=== PATIENT | male | born 1955 | race African-American/Black ===

== ENCOUNTER 2017-01-15 07:40 | Inpatient (IN) | payer OTHER ==
[~2017-01-15] VITALS: Ht 147.3 cm; Wt 81.5 kg
[~2017-01-15 07:40] MED LIST: ASPI-556 PO; DOCU100T8 PO; EXEN10PE SQ; FENO160T16 PO; LISI-622 PO; METF10002 PO; OMEG1CAP31 PO; OMEP20TA86 PO; SIMV40TA5 PO
[2017-01-15] MEDS ORDERED: 0.9% SODIUM CHLORIDE 10 ML SYRINGE IVP PRN ×2 (08:00→22:30)
[2017-01-15 08:02] LABS: GLUCOSE,POINT OF CARE 91 MG/DL (70-110)
[2017-01-15] MEDS ORDERED: ATOR40TA28 PO (08:08)
[2017-01-15] MEDS ORDERED: GABA-531 PO (08:08)
[2017-01-15] MEDS ORDERED: HYDR-4065 PO (08:08)
[2017-01-15] MEDS ORDERED: OMEP20 PO (08:08)
[2017-01-15 08:11] LABS: BASOPHILS % (AUTO) 0.1 % (0.0-2.0); EOSINOPHILS % (AUTO) 0.1 % (1.0-6.0); HEMATOCRIT 45.5 % (41-53); HEMOGLOBIN 14.3 g/dL (13.5-17.5); LYMPHOCYTES % (AUTO) 13.2 % (22.0-44.0); MEAN CORPUSCULAR HEMOGLOBIN 27.2 pg (26.0-34.0); MEAN CORPUSCULAR HGB CONC 31.4 G/dL (31.0-37.0); MEAN CORPUSCULAR VOLUME 87 fL (80-100); MONOCYTES # (AUTO) 0.3 K/uL (0.1-1.0); MONOCYTES % (AUTO) 4.1 % (2.0-9.0); NEUTROPHILS # (AUTO) 6.4 K/uL (1.8-7.7); NEUTROPHILS % (AUTO) 82.5 % (40.0-70.0); PLATELET COUNT (AUTO) 349 K/uL (150-450); RED BLOOD CELL COUNT(AUTO) 5.26 MIL/uL (4.50-5.90); RED CELL DISTRIBUTION WIDTH 16.9 % (11.5-14.5); WHITE BLOOD COUNT (AUTO) 7.7 K/uL (4.5-11.0)
[2017-01-15 08:20] LABS: ANION GAP 18 mmol/L (8-16); CALCIUM, TOTAL 8.9 mg/dL (8.8-10.5); CARBON DIOXIDE 19 mmol/L (22-29); CHLORIDE 104 mmol/L (98-107); CREATININE 1.38 mg/dL (0.60-1.30); GLOMERULAR FILTR. RATE CALC > 60 mL/min (>60); POTASSIUM 3.7 mmol/L (3.5-5.1); SODIUM SERUM 141 mmol/L (136-145); UREA NITROGEN, BLOOD 14 mg/dL (7-18)
[2017-01-15 08:21] LABS: PROTHROMBIN TIME 10.3 SEC (9.4-11.6)
[2017-01-15 08:26] LABS: ALANINE AMINOTRANSFERASE 32 U/L (12-78); ALBUMIN 3.5 g/dL (3.4-5.0); ASPARTATE AMINOTRANSFERASE 29 U/L (15-37); BILIRUBIN,TOTAL 0.4 mg/dL (0.1-1.0); TOTAL PROTEIN, SERUM 7.2 g/dL (6.4-8.2)
[2017-01-15 08:46] LABS: LACTIC ACID 3.4 mmol/L (0.4-2.0)
[2017-01-15 10:05] LABS: REFLEX LACTIC ACID? YES YES
[2017-01-15] MEDS ORDERED: CefTRIAXone 1 GM/DEXTROSE 50 ML IV ONE (11:15)
[2017-01-15] MEDS ORDERED: SODIUM CHLORIDE 0.9% 500 ML IV ONE (11:15)
[2017-01-15] MEDS ORDERED: *CLINICAL-LEVOFLOXACIN ORAL DOSING CLINICAL ONE (12:15)
[2017-01-15] MEDS ORDERED: BISACODYL 10 MG RECTAL RECTAL SUPPOSITORY PR PRN (12:15)
[2017-01-15] MEDS ORDERED: MORPHINE SULFATE 2 MG/ML SYRINGE IVP PRN (12:15)
[2017-01-15] MEDS ORDERED: ONDANSETRON HCL 4 MG/2 ML VIAL IVP PRN (12:15)
[2017-01-15] MEDS ORDERED: MAGNESIUM HYDROXIDE SUSPENSION 30 ML UDCUP PO PRN (12:15)
[2017-01-15] MEDS ORDERED: ACETAMINOPHEN 325 MG TABLET PO PRN (12:15)
[2017-01-15 12:47] LABS: APPEARANCE,URINE CLOUDY (CLEAR); GLUCOSE, URINE (UA) NEGATIVE (NEGATIVE); KETONES,URINE TRACE mg/dL (NEGATIVE); LEUKOCYTE ESTERASE ,URINE NEGATIVE (NEGATIVE); OCCULT BLOOD,URINE SMALL (NEGATIVE); PH,URINE 5.5 (5.0-8.0); PROTEIN,URINE SEE CONFIRM (NEGATIVE)
[2017-01-15 12:48] LABS: ADD UA MICROSCOPIC YES
[2017-01-15 12:50] LABS: SULFOSALICYLIC ACID,URINE 1+ (Negative)
[2017-01-15 12:53] LABS: HYALINE CASTS, URINE 0-2 /LPF (None Seen); RENAL EPITHELIAL CELLS,URINE Few /LPF (None Seen); SQUAMOUS EPITHELIAL CELL,UR Few /LPF (None Seen); WBC,URINE 0-2 /HPF (0-5)
[2017-01-15 13:02] LABS: GLUCOSE,POINT OF CARE 73 MG/DL (70-110)
[2017-01-15] MEDS: LEVOFLOXACIN 750 MG/D5% WATER 150 ML IV SCH (13:27)
[2017-01-15 15:47] VITALS: BP 136/77
[2017-01-15] MEDS: HEPARIN SODIUM,PORCINE 5,000 UNITS/ML VIAL SQ SCH (16:05)
[2017-01-15] MEDS ORDERED: PNEUMOCOCCAL VACCINE POLYVALENT 0.5 ML VIAL [PPSV23] IM ONE (16:30)
[2017-01-15 19:45] VITALS: BP 134/83
[2017-01-15] MEDS: ATORVASTATIN CALCIUM 40 MG TABLET PO SCH (20:43)
[2017-01-15] MEDS: ZOLPIDEM TARTRATE 5 MG TABLET PO PRN (20:43)
[2017-01-15] MEDS: DOCUSATE SODIUM 100 MG CAPSULE PO SCH (20:43)
[2017-01-15] MEDS ORDERED: [UNRECOGNIZED DRUG - OTHER] SQ SCH (21:00)
[2017-01-15] MEDS: HYDROCODONE/ACETAMINOPHEN 5-325 MG TABLET PO PRN (22:14)
[2017-01-15 23:43] VITALS: BP 130/81
[2017-01-16] MEDS: HEPARIN SODIUM,PORCINE 5,000 UNITS/ML VIAL SQ SCH ×3 (00:58→17:08)
[2017-01-16 04:45] VITALS: BP 148/89
[2017-01-16] MEDS: ASPIRIN 81 MG EC TABLET PO SCH (08:06)
[2017-01-16] MEDS: DOCUSATE SODIUM 100 MG CAPSULE PO SCH ×2 (08:06→21:38)
[2017-01-16] MEDS: FENOFIBRATE 160 MG TABLET PO SCH (08:06)
[2017-01-16] MEDS: PANTOPRAZOLE SODIUM 40 MG DR TABLET PO SCH (08:06)
[2017-01-16] MEDS: HYDROCODONE/ACETAMINOPHEN 5-325 MG TABLET PO PRN ×2 (08:06→20:13)
[2017-01-16] MEDS: BISACODYL 10 MG RECTAL RECTAL SUPPOSITORY PR SCH ×2 (11:16→21:38)
[2017-01-16 11:25] VITALS: BP 153/98
[2017-01-16] MEDS ORDERED: MAGNESIUM SULFATE 2 GM, MVI, ADULT NO.1 WITH VIT K 10 ML, THIAMINE HCL 100 MG, FOLIC AC... IV ONE ×5 (14:00)
[2017-01-16 16:06] VITALS: BP 145/103
[2017-01-16 19:37] VITALS: BP 149/100
[2017-01-16] MEDS: ATORVASTATIN CALCIUM 40 MG TABLET PO SCH (21:38)
[2017-01-16] MEDS: ZOLPIDEM TARTRATE 5 MG TABLET PO PRN (21:49)
[2017-01-16 23:02] VITALS: BP 121/77
[2017-01-17] MEDS: HEPARIN SODIUM,PORCINE 5,000 UNITS/ML VIAL SQ SCH ×2 (01:03→08:00)
[2017-01-17 04:36] VITALS: BP 132/82
[2017-01-17 07:01] VITALS: BP 144/91
[2017-01-17] MEDS: PANTOPRAZOLE SODIUM 40 MG DR TABLET PO SCH (08:15)
[2017-01-17] MEDS: FENOFIBRATE 160 MG TABLET PO SCH (08:15)
[2017-01-17] MEDS: ASPIRIN 81 MG EC TABLET PO SCH (08:16)
[2017-01-17] MEDS: DOCUSATE SODIUM 100 MG CAPSULE PO SCH (08:16)
[2017-01-17] MEDS: BISACODYL 10 MG RECTAL RECTAL SUPPOSITORY PR SCH (08:21)
[2017-01-17] MEDS: HYDROCODONE/ACETAMINOPHEN 5-325 MG TABLET PO PRN (09:12)
[2017-01-17 11:03] VITALS: BP 138/87
[2017-01-17] MEDS ORDERED: SODIUM CHLORIDE 0.9% 250 ML IV ONE (13:15)
[2017-01-17] MEDS: LEVOFLOXACIN 750 MG/D5% WATER 150 ML IV SCH (13:26)
[2017-01-17 15:27] VITALS: BP 138/87
== END 2017-01-17 16:15 | disposition home or self-care (01) | DRG 871 ==
LOC: EMS 07:42 → 5S 14:22
PROVIDERS: ADMIT Internal Medicine; ATTEND Internal Medicine
PROC: 3E0234Z Introduction of Serum, Toxoid and Vaccine into Muscle, Percutaneous Approach (ICD-10-PCS; principal; 2017-01-16)
DX: A41.9 Sepsis, unspecified organism (principal); G93.41 Metabolic encephalopathy; J18.9 Pneumonia, unspecified organism; N17.0 Acute kidney failure with tubular necrosis; E11.22 Type 2 diabetes mellitus with diabetic chronic kidney disease; E78.5 Hyperlipidemia, unspecified; N18.9 Chronic kidney disease, unspecified; K59.00 Constipation, unspecified; K21.9 Gastro-esophageal reflux disease without esophagitis; J45.909 Unspecified asthma, uncomplicated; F19.10 Other psychoactive substance abuse, uncomplicated; Z98.890 Other specified postprocedural states; Z79.84 Long term (current) use of oral hypoglycemic drugs; Z89.512 Acquired absence of left leg below knee; Z89.511 Acquired absence of right leg below knee; Z86.61 Personal history of infections of the central nervous system; Z79.82 Long term (current) use of aspirin; Z79.899 Other long term (current) drug therapy; Z23 Encounter for immunization
CPT/HCPCS: 70450; 82962; 83605; 87040; 87205; 90471; 93005; 96365; 96366; 96368; 99285; J0696; J1644; J1956; J3411; J3475; J3490; J7030; J7040; J7050